=== PATIENT | female | born 1985 | race Two or more races ===

== ENCOUNTER 2024-10-03 19:04 | Emergency (ER) | payer OTHER ==
[~2024-10-03] VITALS: Ht 162.6 cm; Wt 78.9 kg
[2024-10-03] MEDS ORDERED: NASONEX 24HR AL17 ML (19:29)
[2024-10-03] MEDS ORDERED: METH16TA (19:29)
[2024-10-03] MEDS ORDERED: PROTONIX40 M1 (19:29)
[2024-10-03] MEDS ORDERED: PEPCID AC20 MG (19:30)
[2024-10-03] MEDS ORDERED: BARIUM SULFATE 450 ML ORAL.SUSP PO ONE (19:55)
[2024-10-03 20:14] LABS: BASO % 0.5 % (0.1-1.2); EOS # 0.38 (0.04-0.54); EOS % 2.7 % (0.7-7.0); HEMATOCRIT 39.4 % (34.1-44.9); HEMOGLOBIN 13.3 g/dL (11.2-15.7); LYMPH # 3.08 (1.18-3.74); LYMPH % 21.7 % (19.3-53.1); MEAN CORPUSCULAR HEMOGLOBIN 31.5 pg (25.6-32.2); MONO # 0.86 (0.24-0.82); MONO % 6.1 % (4.7-12.5); NEUT # 9.72 (1.56-6.13); NEUT % 68.4 % (34.0-71.1); PLATELET COUNT 521 K/uL (163-369); RED BLOOD COUNT 4.22 M/uL (3.93-5.22); RED CELL DISTRIBUTION WIDTH 12.2 % (11.6-14.4)
[2024-10-03 20:40] LABS: CALCIUM 10.2 mg/dL (8.5-10.1); CREATININE SERUM 0.67 mg/dL (0.55-1.02); GFR 97.99; POTASSIUM 4.64 mEq/L (3.5-5.1)
[2024-10-03 20:45] LABS: INR 0.94; PARTIAL THROMBOPLASTIN TIME 28.6 SECONDS (22.0-34.0); PROTHROMBIN TIME 10.3 SECONDS (9.0-11.5)
== END 2024-10-04 00:14 | disposition home or self-care (01) ==
LOC: ER 19:04
PROVIDERS: Emergency Medicine
DX: K62.89 Other specified diseases of anus and rectum (principal); Z88.2 Allergy status to sulfonamides; Z87.09 Personal history of other diseases of the respiratory system